=== PATIENT | female | born 1960 | race Caucasian/White ===

== ENCOUNTER 2016-11-27 16:49 | Emergency (ER) | payer OTHER ==
[~2016-11-27] VITALS: Ht 154.9 cm; Wt 69.9 kg
[2016-11-27] MEDS ORDERED: SODIUM CHLORIDE 0.9% 1,000 ML IV ONE (17:26)
[2016-11-27] MEDS ORDERED: SODIUM CHLORIDE FLUSH 10ML SYR IVF ONE (17:30)
[2016-11-27 18:08] LABS: HEMOGLOBIN 13.3 g/dL (11.7-16.4)
[2016-11-27 18:20] LABS: BLOOD UREA NITROGEN 15 mg/dL (7-18)
[2016-11-27 18:21] LABS: ASPARTATE AMINO TRANSFERASE 22 U/L (15-37)
[2016-11-27 20:36] VITALS: BP 134/72
== END 2016-11-27 20:39 | disposition home or self-care (01) ==
LOC: ED 17:18
DX: J20.9 Acute bronchitis, unspecified (principal); B96.89 Other specified bacterial agents as the cause of diseases classified elsewhere; N30.00 Acute cystitis without hematuria; Z88.1 Allergy status to other antibiotic agents
CPT/HCPCS: 36415; 71020; 80053; 81001; 85025; 87077; 87086; 87186; 93005; 96360; 99285; J7030

== ENCOUNTER 2017-06-05 10:10 | Emergency (ER) | payer OTHER ==
[~2017-06-05] VITALS: Ht 157.5 cm; Wt 69.3 kg
[2017-06-05] MEDS ORDERED: ONDANSETRON 2MG/ML, 2ML IVPush ONE (10:30)
[2017-06-05] MEDS ORDERED: SODIUM CHLORIDE FLUSH 10ML SYR IVF ONE (10:30)
[2017-06-05] MEDS ORDERED: HYDROmorphone 1 MG/ML, 1ML IVPush PRN (10:30)
[2017-06-05] MEDS ORDERED: HYDROmorphone 1 MG/ML, 1ML ONE (11:07)
[2017-06-05] MEDS ORDERED: ONDANSETRON 2MG/ML, 2ML ONE (11:08)
[2017-06-05 11:16] LABS: HEMATOCRIT 41.2 % (34.6-47.8); HEMOGLOBIN 13.8 g/dL (11.7-16.4); WHITE BLOOD COUNT 7.8 x10^3/uL (3.4-10)
[2017-06-05 11:26] LABS: BLOOD UREA NITROGEN 15 mg/dL (7-18)
[2017-06-05] MEDS ORDERED: NAPR250T6 PO (11:30)
[2017-06-05] MEDS ORDERED: antiemetic PO (11:30)
[2017-06-05] MEDS ORDERED: OMNIPAQUE 350 MG/ML, 100ML BOTTLE ONE (12:07)
[2017-06-05 14:15] VITALS: BP 97/60
== END 2017-06-05 14:23 | disposition home or self-care (01) ==
LOC: ED 12:19
DX: S20.02XA Contusion of left breast, initial encounter (principal); S20.01XA Contusion of right breast, initial encounter; S50.02XA Contusion of left elbow, initial encounter; S80.12XA Contusion of left lower leg, initial encounter; S00.01XA Abrasion of scalp, initial encounter; M50.220 Other cervical disc displacement, mid-cervical region, unspecified level; M50.221 Other cervical disc displacement at C4-C5 level; V49.9XXA Car occupant (driver) (passenger) injured in unspecified traffic accident, initial encounter; Y93.89 Activity, other specified; Y99.8 Other external cause status; Y92.488 Other paved roadways as the place of occurrence of the external cause; Y92.410 Unspecified street and highway as the place of occurrence of the external cause
CPT/HCPCS: 36415; 70450; 70486; 71020; 72072; 72110; 72125; 73080; 73590; 74177; 80048; 82040; 85025; 96374; 96375; 99285; J1170; J2405; Q9967

== ENCOUNTER → 2017-08-25 | Outpatient (CLI) | payer OTHER ==
[~2017-08-25] MED LIST: NAPR250T6 PO; antiemetic PO
== END | disposition home or self-care (01) ==
LOC: CFH 13:09
PROVIDERS: ATTEND Neurological Surgery
DX: M50.320 Other cervical disc degeneration, mid-cervical region, unspecified level (principal); M47.812 Spondylosis without myelopathy or radiculopathy, cervical region; Q76.5 Cervical rib
CPT/HCPCS: 72050

== ENCOUNTER 2018-10-20 12:05 | Observation (INO) | payer BC, OTHER ==
[~2018-10-20] VITALS: Ht 154.9 cm; Wt 68.0 kg
--- NOTE | 2018-10-20 12:34 | NUR ---
PT PRESENTS TO ED WITH C/O LEFT CHEST PAIN 6/10 WORSE WITH BREATHING, DENIES RADIATING PAIN, REPORTS DIZZINESS ASSOCIATED. PT A&O X 4, NEURO INTACT, RESPS EVEN AND UNLABORED. ALL MONTIORS IN PLACE. CALL LIGHT IN REACH. AWAITING LABS/XRAY AT THIS TIME. EKG DONE IN TRIAGE.
[2018-10-20 12:51] LABS: BASOPHILS # (AUTO) 0.03 x10^3/uL (0-0.1); BASOPHILS % (AUTO) 0 % (0-1); EOSINOPHILS % (AUTO) 1 % (1-7); LYMPHOCYTES % (AUTO) 31 % (22-44); MD NO; MEAN CORPUSCULAR HEMOGLOBIN 26.4 pg (27.0-34.8); MEAN CORPUSCULAR HGB CONC 32.5 g/dL (32.4-35.8); MEAN CORPUSCULAR VOLUME 81.2 fL (80-100); MEAN PLATELET VOLUME 8.5 fL (7.4-10.4); MONOCYTES # (AUTO) 0.51 x10^3/uL (0.2-0.8); MONOCYTES % (AUTO) 7 % (2-9); NEUTROPHILS # (AUTO) 4.56 x10^3/uL (1.8-6.8); NEUTROPHILS % (AUTO) 61 % (42-75); PLATELET COUNT 316 x10^3/uL (130-400); RED CELL DISTRIBUTION WIDTH 13.6 % (9.6-15.2)
[2018-10-20 12:59] LABS: INTERNATIONAL NORMALIZED RATIO 1.01 (0.93-1.1); PROTHROMBIN TIME 10.7 Seconds (9.6-11.5)
[2018-10-20 13:00] LABS: ALANINE AMINOTRANSFERASE 30 U/L (12-78); ALBUMIN 3.6 g/dL (3.4-5.0); ANION GAP 7 mmol/L (5-15); CALCIUM 8.9 mg/dL (8.5-10.1); CHLORIDE 107 mmol/L (98-107); CREATININE 0.71 mg/dL (0.55-1.02)
[2018-10-20 13:05] LABS: ALKALINE PHOSPHATASE 131 U/L (45-117); BILIRUBIN,TOTAL 0.3 mg/dL (0.2-1.0); TOTAL PROTEIN 8.5 g/dL (6.4-8.2); TROPONIN I < 0.015 ng/mL (0.000-0.045)
--- NOTE | 2018-10-20 13:22 | NUR ---
PT A&O, RESPS EVEN AND UNLABORED. 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 PT REPORTS LEFT CP 5/10 AT THIS TIME, DENIES NEED FOR PAIN MED AT THIS TIME. PT REPORTS DIZZINESS HAS SUBSIDED. PT UP TO BATHROOM AND BACK, GAIT STEADY, ALL MONITORS REAPPLIED. 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 ALL RESULTS BACK, CHART UP FOR RECHECK. AWAITING MD AND DISPO AT THIS TIME. CALL LIGHT IN REACH.
[2018-10-20] MEDS ORDERED: IBUPROFEN PO (13:25)
--- NOTE | 2018-10-20 14:20 | NUR ---
pt updated with POC to be admitted for chest pain workup, pt verbalizes understanding. pt a&o, resps even and unlabored. 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
[2018-10-20] MEDS ORDERED: MORPHINE SULFATE 4 MG/ML, 1ML IVPush PRN (14:30)
[2018-10-20] MEDS ORDERED: ASPIRIN 325 MG TABLET PO ONE (14:30)
[2018-10-20] MEDS ORDERED: NITROGLYCERIN 0.4 MG BOTTLE (25 TABS) SL PRN ×2 (14:30→15:00)
[2018-10-20] MEDS ORDERED: ASPIRIN 325 MG TABLET ONE (14:33)
--- NOTE | 2018-10-20 14:39 | NUR ---
pt refusing nitro and morphine ordered at this time. EDMD Law notified. pt reports chest pain level 02/11. pt medicated per emar with aspirin, tolerated well. awaiting card tele assingment and transport. brett at this time.
[2018-10-20] MEDS: HEPARIN 5,000 UNITS/ML, 1ML SQ SCH ×2 (15:00→23:00)
[2018-10-20] MEDS ORDERED: NITROGLYCERIN 0.4 MG/SPRAY SL PRN (15:00)
[2018-10-20] MEDS ORDERED: ONDANSETRON ODT 4 MG PO PRN (15:00)
[2018-10-20] MEDS ORDERED: ALUMINUM/MAG/SIMETHICONE 30 ML UDC PO PRN (15:00)
[2018-10-20] MEDS ORDERED: ACETAMINOPHEN 325 MG TABLET PO PRN (15:00)
[2018-10-20] MEDS ORDERED: ALBUTEROL/IPRATROPIUM 2.5MG/0.5MG, 3 ML NPPB PRN (15:00)
[2018-10-20] MEDS ORDERED: LIDODERM 5% PATCH TD PRN (15:00)
[2018-10-20] MEDS ORDERED: FAMOTIDINE 20 MG TABLET PO PRN (15:00)
[2018-10-20] MEDS ORDERED: IBUPROFEN 600 MG TABLET PO PRN (15:00)
[2018-10-20] MEDS ORDERED: GUAIFENESIN/DM 200-20MG, 10ML UDC PO PRN (15:00)
[2018-10-20] MEDS ORDERED: hydrALAzine 20 MG/ML, 1ML IVPush PRN (15:00)
[2018-10-20] MEDS ORDERED: DOCUSATE 100 MG CAPSULE PO PRN (15:00)
--- NOTE | 2018-10-20 15:04 | NUR ---
report given to receiving RN Malou. pt awaiting transport to room 521-1.
--- NOTE | 2018-10-20 15:11 | NUR ---
pt a&o, resps even and unlabored, nadn at this time. pt transported to cardiac tele at this time, accompanied by . Addendum: 10/20/18 at 1513 by TIFFANIE pt a&o, resps even and unlabored, nadn at this time. pt transported to cardiac tele at this time, accompanied by . pt took her purse and clothes with her upon transport.
[2018-10-20 15:14] LABS: FREE T4 (FREE THYROXINE) 1.09 ng/dL (0.76-1.46); TROPONIN I < 0.015 ng/mL (0.000-0.045)
[2018-10-20 15:22] VITALS: BP 133/80
[2018-10-20 15:22] LABS: HEMOGLOBIN A1C 6.1 % (4.2-6.3)
[2018-10-20 16:02] VITALS: BP 133/80
[2018-10-20 19:45] VITALS: BP 105/66
[2018-10-20 20:07] LABS: AMPHETAMINE SCREEN, URINE Negative (Negative); BARBITURATE SCREEN, URINE Negative (Negative); BENZODIAZEPINE SCREEN, URINE Negative (Negative); CANNABINOID SCREEN, URINE Negative (Negative); COCAINE SCREEN, URINE Negative (Negative); METHADONE SCREEN, URINE Negative (Negative); OPIATE SCREEN, URINE Negative (Negative)
[2018-10-20 20:57] LABS: TROPONIN I < 0.015 ng/mL (0.000-0.045)
[2018-10-21 00:37] VITALS: BP 113/73
[2018-10-21 04:57] LABS: BASOPHILS # (AUTO) 0.05 x10^3/uL (0-0.1); BASOPHILS % (AUTO) 1 % (0-1); EOSINOPHILS # (AUTO) 0.23 x10^3/uL (0-0.4); EOSINOPHILS % (AUTO) 3 % (1-7); LYMPHOCYTES # (AUTO) 2.57 x10^3/uL (1-3.4); LYMPHOCYTES % (AUTO) 37 % (22-44); MD NO; MEAN CORPUSCULAR HEMOGLOBIN 26.9 pg (27.0-34.8); MEAN CORPUSCULAR HGB CONC 32.6 g/dL (32.4-35.8); MEAN CORPUSCULAR VOLUME 82.6 fL (80-100); MEAN PLATELET VOLUME 9.1 fL (7.4-10.4); MONOCYTES # (AUTO) 0.45 x10^3/uL (0.2-0.8); MONOCYTES % (AUTO) 7 % (2-9); NEUTROPHILS # (AUTO) 3.71 x10^3/uL (1.8-6.8); NEUTROPHILS % (AUTO) 53 % (42-75); PLATELET COUNT 274 x10^3/uL (130-400); RED BLOOD COUNT 4.76 x10^6/uL (3.82-5.3); RED CELL DISTRIBUTION WIDTH 14.1 % (9.6-15.2)
[2018-10-21 05:09] LABS: CHLORIDE 112 mmol/L (98-107)
[2018-10-21 05:17] LABS: ANION GAP 6 mmol/L (5-15); CALCIUM 7.9 mg/dL (8.5-10.1); CHOL/HDL RATIO 3.5; CHOLESTEROL, TOTAL 122 mg/dL (140-239); CREATININE 0.65 mg/dL (0.55-1.02); HDL CHOL % 29 % (28-40); HDL CHOLESTEROL (DIRECT) 35 mg/dL (40-60); LDL CHOLESTEROL,CALCULATED 60 mg/dL (54-169); LDL/HDL RATIO 1.7 (0.5-3.0); TRIGLYCERIDES 137 mg/dL (50-200); VLDL CHOLESTEROL 27 mg/dL (0-25)
[2018-10-21] MEDS: HEPARIN 5,000 UNITS/ML, 1ML SQ SCH (06:47)
[2018-10-21 07:10] VITALS: BP 102/69
[2018-10-21] MEDS ORDERED: REGADENOSON 0.4 MG/5 ML SYRINGE ONE (08:16)
[2018-10-21 13:25] VITALS: BP 112/72
== END 2018-10-21 14:45 | disposition home or self-care (01) ==
LOC: ED 12:25 → EDIP 14:03 → INTOOBSV 14:03 → UNDOADMOB 14:03 → EDIP 14:32 → 5SO 15:17 → EDIP 15:17 → 5SO 15:17 → UNDODISOB 10-21 14:45
PROVIDERS: ADMIT Hospitalist; ATTEND Hospitalist
DX: R07.89 Other chest pain (principal); R42 Dizziness and giddiness; Z90.710 Acquired absence of both cervix and uterus
CPT/HCPCS: 36415; 71045; 78452; 80048; 80053; 80061; 80307; 83036; 84439; 84443; 84484; 85025; 85610; 85730; 93005; 93017; 93306; 96372; 99284; A9502; C9898; G0378; J1644; J2785; 99285

== ENCOUNTER 2021-03-10 13:33 | Emergency (ER) | payer BC, OTHER ==
[~2021-03-10] VITALS: Ht 154.9 cm; Wt 64.9 kg
[~2021-03-10 13:33] MED LIST changes: +IBUPROFEN PO; +NAPR-872 PO; -NAPR250T6 PO
--- NOTE | 2021-03-10 13:36 | NUR ---
NIL x1, reported to be in bathroom.
[2021-03-10] MEDS ORDERED: SERTRALINE 50MG TABLET ONE (13:41)
--- NOTE | 2021-03-10 14:07 | NUR ---
PT AMBULATORY TO ROOM 34 W C/O FORGETFULNESS FOR SOME TIME NOW, FOGGY MIND, DOING STRANGE THINGS SUCH GOING TO GET THE MAIL FORGETTING WHY SHE'S THERE AND THROWING THE MAIL AWAY. PER FAMILY THIS HAS BEEN GOING ON FOR SOME TIME. PT WENT TO SEE HER PCP AND WAS TOLD TO COME TO ED FOR FURTHER EVAL. PT RESTING ON GURNEY. NADN. MONITORS APPLIED. VSS. WARM BLANKET PROVIDED. CALL LIGHT IN REACH.
[2021-03-10 14:26] LABS: MICROSCOPIC NOT IND
--- NOTE | 2021-03-10 14:34 | NUR ---
PT RESTING ON GURNEY. NADN. MCINTYRE.
[2021-03-10 14:42] LABS: BASOPHILS % (AUTO) 1 % (0-1); EOSINOPHILS % (AUTO) 3 % (1-7); LYMPHOCYTES % (AUTO) 34 % (22-44); MEAN CORPUSCULAR HEMOGLOBIN 26.6 pg (27.0-34.8); MEAN CORPUSCULAR HGB CONC 32.8 g/dL (32.4-35.8); MEAN PLATELET VOLUME 8.6 fL (7.4-10.4); MONOCYTES % (AUTO) 7 % (2-9); NEUTROPHILS % (AUTO) 56 % (42-75); PLATELET COUNT 310 x10^3/uL (130-400); RED BLOOD COUNT 4.61 x10^6/uL (3.82-5.3); RED CELL DISTRIBUTION WIDTH 14.3 % (9.6-15.2)
[2021-03-10 14:52] LABS: ALBUMIN 3.6 g/dL (3.4-5.0); ANION GAP 3 mmol/L (5-15); CALCIUM 8.8 mg/dL (8.5-10.1); CHLORIDE 108 mmol/L (98-107)
[2021-03-10 14:55] LABS: ALANINE AMINOTRANSFERASE 22 U/L (12-78); ALKALINE PHOSPHATASE 117 U/L (45-117); BILIRUBIN,TOTAL 0.2 mg/dL (0.2-1.0); TOTAL PROTEIN 8.2 g/dL (6.4-8.2)
--- NOTE | 2021-03-10 15:04 | NUR ---
PT TAKEN TO CT IN STABLE CONDITION.
--- NOTE | 2021-03-10 15:37 | NUR ---
PT CHART REVIEWED AND PLACED FOR RECHECK.
--- NOTE | 2021-03-10 15:42 | NUR ---
BREAK RN: PT SITTING UP ON [facility]. NO ACUTE DISTRESS NOTED. FAMILY AT BEDSIDE. UPDATED ON POC. IE: WAITING FOR MD REVIEW AND RECHECK. UNDERSTANDING VERBALIZED.
[2021-03-10 15:43] VITALS: BP 110/63
--- NOTE | 2021-03-10 15:45 | NUR ---
Archie pederson in EDM - 03/10/21 at 1550 by ANANTH BREAK RN: DR WELCH AT BEDSIDE TO [facility] PT. PT WITH BIPAP IN PLACE. WAITING FOR MUSIC AUTOGRAPHER KATHLEEN TO BRING OXYGEN AND MAKE PT TO MAKE DECISIONS ON STAYING INPATIENT OR GOING AMA.
== END 2021-03-10 16:58 | disposition home or self-care (01) ==
LOC: ED 15:00
DX: R41.82 Altered mental status, unspecified (principal); R94.31 Abnormal electrocardiogram [ECG] [EKG]; E11.9 Type 2 diabetes mellitus without complications; Z90.49 Acquired absence of other specified parts of digestive tract
CPT/HCPCS: 36415; 70450; 80053; 81003; 85025; 93005; 99285